=== PATIENT | male | born 1970 | race Caucasian/White ===

== ENCOUNTER 2017-01-28 01:54 | Inpatient (IN) | payer MEDICAID, OTHER ==
[~2017-01-28] VITALS: Ht 185.4 cm; Wt 90.9 kg
[2017-01-28] VITALS (16 sets, daily range): BP systolic 108–142; BP diastolic 73–98; PULSE 84–126; RESP 16–30; O2SAT 92–99
--- NOTE | 2017-01-28 01:55 | ED.REPORT ---
HPI-Chest Pain 40 and Over Date of Service Jan 28, 2017 ED Provider: Yazan Pollard MD The patient is a 46 year old male w/ a hx of IV methamphetamine and HTN who presents to the ED via EMS transferred from [facility] due to chest pain and SOB 3 hours ago. Per medics, he was stable en route. Pt describes his pain as "chest tightness." His pain originally was 5/10 and he received aspirin and nitro en route. At ED, pt reports his pain is reduced to 1/10. His last meth use was two days ago. Seen 2 days ago at [facility] for chest pain where he was diagnosed with early onset CHF. He never filled his script for Lasix and Potassium. He denies any infections, heroine use, heart problems, and high cholesterol. Grandfather and mother have heart disease. CT chest 01/26/17 Impression: 1. No acute pulmonary embolus. 2. Pleural effusions , mild edema, and cardiomegaly suggesting congestive heart failure. Please note , the questionable right basilar radiopacities described on the associated chest film from earlier today likely represent effusion and atelectasis and not airspace disease. Approved by: Callie Hess M.D. on 01/26/17 Nursing Notes Stated Complaint: CHEST PAIN Nursing Notes Reviewed: Yes Allergies: Coded Allergies: Penicillins (Verified Allergy, Unknown, 01/28/17) General Time Seen by MD: 01:50 Chief Complaint Chest pain Hx Obtained From: Patient Arrived By: Ambulance Sudden in Onset?: Yes Onset Occurred: 1 - 4 hours ago Symptom Duration: Since onset Location: : Chest left Quality: Painful Severity: Current: Pain level 1 out of 10 Severity: Maximum: Pain level 5 out of 10 Associated with: Reports: Shortness of Breath Past Medical History Past Medical History unknown Past Surgical History unknown Smoking History Unknown if Ever Smoker Social History Drug Use: Meth Other Social History: Local resident Ambulatory Status Independent Review of Systems Respiratory: Reports: Shortness of breath Cardiovascular: Reports: Chest pain Complete sys rev & neg: except as marked. Physical Exam Initial Vital Signs Vital Signs (First) Date Time Temp Pulse Resp B/P Pulse Ox O2 Delivery O2 Flow Rate FiO2 01/28/17 01:59 36.3 123 24 138/93 97 Nasal Cannula 4 Initial VS: Reviewed, Vital signs abnormal Head / Eyes: Atraumatic, Normocephalic, PERRL ENT: Mucous membranes moist, Conjunctiva normal Neck: Supple, Non-tender Extremities: Vascular intact, No swelling, No tenderness Skin: Warm, Dry Psychiatric: Mood/affect normal General/Constitutional: Awake, Alert, Cooperative Rales / Rhonchi: Positive: Rales bilateral up to 1/3 tachypneic using accessory muscles of respiration Heart Rate / Rhythm: Positive: Tachycardia Abdomen: Atraumatic, Soft, Non-tender Neck: Atraumatic, No JVD Lower Extremity / Pelvis / MS: Atraumatic, Inspection NL, No edema Interpretation & Diagnostics Lab Results Interpretation Result Diagram: 01/28/17 0203 01/28/17 0203 Test 01/28/17 02:03 01/28/17 02:04 White Blood Count 9.2th/mm3 (3.8-10.1) Red Blood Count 4.73mil/mm3 (4.40-5.80) Hemoglobin 13.4g/dL (13.8-17.2) Hematocrit 41.2% (41.0-50.0) Mean Corpuscular Volume 87.1fL (81-100) Mean Corpuscular Hemoglobin 28.3pg (27.0-35.0) Mean Corpuscular Hemoglobin Concent 32.5% (32.0-37.0) Red Cell Distribution Width 13.3% (12.3-15.4) Platelet Count 234bil/L (150-400) Neutrophils (%) (Auto) 50.7% (40-74) Lymphocytes (%) (Auto) 37.6% (14-46) Monocytes (%) (Auto) 8.3% (4-12) Eosinophils (%) (Auto) 3.0% (0-5) Basophils (%) (Auto) 0.2% (0-3) Hold Purple Top Tube Received (Received) Prothrombin Time 12.7sec (8.1-12.5) Prothromb Time International Ratio 1.18ratio Activated Partial Thromboplast Time 28.9sec (22.8-33.0) Hold Blue Top Tube Received (Received) Sodium Level 137mEq/L (134-144) Potassium Level 4.6mEq/L (3.5-5.2) Chloride Level 104mEq/L (97-108) Carbon Dioxide Level 19mmol/L (18-29) Blood Urea Nitrogen 20mg/dL (6-24) Creatinine 0.81mg/dL (0.76-1.27) Estimat Glomerular Filtration Rate 110mL/min (>59) Glucose Level 128mg/dL (60-99) Lactic Acid Level 1.4mmol/L (0.4-2.0) Calcium Level 8.3mg/dL (8.5-10.1) Magnesium Level 2.1mg/dL (1.6-2.6) Total Bilirubin 0.4mg/dL (0.0-1.2) Aspartate Amino Transf (AST/SGOT) 55U/L (0-50) Alanine Aminotransferase (ALT/SGPT) 56U/L (0-44) Alkaline Phosphatase 88U/L (25-150) Total Creatine Kinase 96U/L (21-232) Creatine Kinase MB 2.4ng/mL (0.0-10.4) Creatine Kinase MB % % (0.0-5.0) Troponin T 0.010ug/L (0.0-0.011) Total Protein 6.7g/dL (6.4-8.4) Albumin 3.1g/dL (3.4-5.0) Thyroid Stimulating Hormone (TSH) 5.790uIU/mL (0.450-4.500) Hold [place] Top Tube Received (Received) Hold [place] Top Tube Received (Received) Lab values outside NL range: no clinical significance. Lab Results Interpretation: Normal troponin. Drug screen positive for methamphetamine. X-Ray Chest Interpretation Chest Xray Interpretation: IMPRESSION: CHF, cardiomyopathy View: Portable Interpretation / Wet Read by: Wet read ED physician Re-Eval/Medical Decision Med Decision/Clinical Course 46-year-old male with a history of methamphetamine abuse and very recently diagnosed CHF of uncertain etiology. He had 2-3 hours of substernal chest pain and EKG changes suspicious for but not diagnostic of STEMI. Partial STEMI protocol protocol was used not to include heparin, beta lottie, and Plavix. He was evaluated by Dr. Juarez and it was decided that he should go to the Facilities Director. After Facilities Director his care will be arranged for between Dr. Juarez and Dr. Kaiser. Time of Eval: 02:59 Patient Status: Condition unchanged Re-Evaluation/Progress Note: Pt rechecked. Chest x-ray results show CHF. Plan for admission. Pt understands and agrees with plan. All questions addressed. Consultation #1: Referral / Consult Name: Nasim Juarez MD Consulted With: Cardiology Call Returned at: 02:01 Gate Clerk: Agrees with eval, Agrees with plan Note: Case discussed. Dr. Juarez will take pt to systems testing laboratory technician. Consultation #2: Referral / Consult Name: Charlie Kaiser MD Consulted With: Hospitalist Call Returned at: 03:23 Gate Clerk: Agrees with eval, Agrees with plan Note: Case discussed. Dr. Juarez wants Dr. Del Toro to admit. Counseled Regarding: Diagnosis, Lab results, Need for admission Discharge & Departure Primary Impression: CHF (congestive heart failure) Congestive heart failure type: unspecified congestive heart failure type Congestive heart failure chronicity: unspecified congestive heart failure chronicity Qualified Code: I50.9 - Heart failure, unspecified Additional Impression: Cardiomyopathy Disposition: ADMITTED TO HOSPITAL Discharge Condition All VS Reviewed: Yes Condition: Stable Referrals: [facility] Crit Care Except Billable Proc Time Spent: 30-74 minutes Services Performed: Patient management by me, Time spent at bedside, Reviewing test results, Reviewing imaging, Discussing patient care, Documentation in record, Time with fam/surrogate Critical Care Notes: 46-year-old male with chest pain evaluated by Dr. Juarez and taken to the Facilities Director as a non-STEMI. Scribe Attestation Portion of this note were transcribed by Janki Fang. I, Dr. Pollard, personally performed the history, physical exam, and medical decision-making: I reviewed and confirmed the accuracy for the information in the transcribed note. Signed by: rissa Claire, 01/28/17 0300 copies to: [facility] Yazan Pollard MD Jan 28, 2017 01:55 Janki Fang Jan 28, 2017 02:02
[2017-01-28] MEDS ORDERED: Furosemide 10 mg/mL 4 mL Inj IVPUSH ONE ×2 (02:10→14:45)
[2017-01-28 02:20] LABS: BASOPHILS % (AUTO) 0.2 % (0-3); MONOCYTES % (AUTO) 8.3 % (4-12); Mean Corpuscular Hemoglobin 28.3 pg (27.0-35.0); Mean Corpuscular Volume 87.1 fL (81-100); NEUTROPHILS % (AUTO) 50.7 % (40-74); Platelet Count 234 bil/L (150-400)
[2017-01-28] MEDS ORDERED: Nitroglycerin 50,000 mcg/250 mL D5W Premix IV ONE (02:33)
[2017-01-28] MEDS ORDERED: 0.9% Sodium Chloride 1,000 ML ONE (02:33)
[2017-01-28] MEDS ORDERED: 0.9% Sodium Chloride 500 ML ONE (02:34)
[2017-01-28] MEDS ORDERED: Heparin 1,000 Unit/mL 10 mL Inj ONE (02:34)
[2017-01-28 02:44] LABS: TROPONIN T 0.01 ug/L (0.0-0.011)
[2017-01-28 03:00] LABS: Magnesium 2.1 mg/dL (1.6-2.6)
[2017-01-28] MEDS ORDERED: fentaNYL-PF 50 mCg/mL 2 mL Inj ONE (03:25)
[2017-01-28] MEDS ORDERED: 0.9% Sodium Chloride 1,000 ML IV SCH (03:43)
--- NOTE | 2017-01-28 03:43 | PCM.HPMED ---
Subjective Date of Service Jan 28, 2017 Primary Provider: Admitting Physician: Nasim Juarez MD Primary Care Physician: Neymar Gomez MD Attending Physician: Nasim Juarez MD Chief Complaint: Chest pain History of Present Illness: Patient is a 46 y.o. M with a medical history of IV methamphetamine use, HTN. Patient presented to ED via EMS from [facility] due to chest pain and shortness of breath. Per EMS report patient described pain as chest tightness, 5 /10, received nitroglycerin and aspirin en route, with good relief of chest pain down to 1/10. Patient stated his last meth use was two days ago. Patient was seen at [facility] two days ago for meth intoxication, chest pain, and diagnosed with early onset CHF. He was discharge with a prescription for Lasix and potassium, which he never filled. Upon arrival to ED chest pain had mostly resolved, EKG showed ST elv in leads V2-6, patient case discussed with Dr. Juarez who agreed to take patient to custodial laborer. Patient reports that symptoms today were similar to those at [facility] but worse, noting shortness of breath, chest pain described a crushing/tightness, sweating, dizziness, nausea. Patient denies syncope, nausea, vomiting, chills, diarrhea, change in vision, cough. Review of Systems: Comprehensive review of systems conducted and was negative except for the pertinent positives listed above. Allergies Coded Allergies: Penicillins (Verified Allergy, Unknown, 01/28/17) Home Medications Lasix Potassium PMH IV methamphetamine Surgical History None reported Family History Coronary artery disease Atrial fibrillation HTN Social History Hx Alcohol Use: No Hx Substance Use: Yes (Meth) Smoking Status: Unknown if Ever Smoker Exam Vital Signs Vital Sign - Last Date Time Temp Pulse Resp B/P Pulse Ox O2 Delivery O2 Flow Rate FiO2 01/28/17 03:03 36.3 121 26 134/98 99 Nasal Cannula 4 Intake and Output 01/27/17 01/27/17 01/28/17 Cumulative From/Thru 15:00 23:00 07:00 01/28/17 01:59 - 01/28/17 03:03 Output Total 600 ml 600 ml Balance -600 ml -600 ml Output Urine Total 600 ml 600 ml Exam General: Alert, Oriented X3, Cooperative, No Acute Distress Head: Normocephalic, atraumatic. External ears normal. Eyes: PERRLA, EOMI. Anicteric sclerae. Mouth: Mouth Normal, Mucous Membranes dry/[place] Neck: Neck supple with full range of motion. + JVD at 45 degrees Chest & Lungs: Bilateral diffuse ronchi in all lung bueno, mild crackles at bases, wheezes, or rhonchi. Cardiovascular: Regular Rate/Rhythm, Normal S1, Normal S2, soft grade I/IV systolic murmur at LSB/Rubs/Gallops Abdomen: Non-tender, Non-distended, No masses, Normoactive bowel tones, Soft Musculoskeletal: Normal Range of Motion Extremities: No cyanosis/clubbing/, non pitting edema lower extremities bilaterally, catheter insertion site bandaged with good hemostatsis. Neurological: Grossly Neurologically Intact, Cranial Nerves 2-12 Intact, Normal Speech, Strength Normal 4/4 ext, Sensation Intact, Cerebellar Function nl Finger-Nose, Lab and Diagnostics Result Diagram: 01/28/17 0203 01/28/17 0203 X-Rays, CTs and MRIs CT chest 01/26/17 Impression: 1. No acute pulmonary embolus. 2. Pleural effusions, mild edema, and cardiomegaly suggesting congestive heart failure. Please note, the questionable right basilar radiopacities described on the associated chest film from earlier today likely represent effusion and atelectasis and not airspace disease. Approved by: Callie Hess M.D. on 01/26/17 Chest Xray IMPRESSION: CHF, cardiomyopathy View: Portable Interpretation / Wet Read by: Wet read ED physician Assessment & Plan Patient is a 46 y.o. M with a medical history of IV methamphetamine use, HTN. Patient presented to ED via EMS from [facility] due to chest pain and shortness of breath. Admitted to hospital for treatment of STEMI s/p cardiac categorization 01/28/17, new onset CHF. 1. CHF, unspecified diastolic/systolic, acute, uncontrolled - Patient recently discharge from [facility] with diagnosis of new onset CHF, unspecified etiology - CT chest 01/26/17 cardiomegaly suggesting congestive heart failure, no sign of PE - CXR consistent with CHF - s/p cardiac categorization 01/28/17 Dr. Juarez, showed presence of mitral regurgitation and pulmonary edema, no signs of STEMI - EKG post cardiac cath showed no signs of ischemia - Metoprolol 25 mg PO QD - Lisinopril 5 mg QD - ASA 81 mg PO QD - Atorvastatin 40 mg PO QD - Morphine 1-4 mg IV PRN for chest pain - Repeat BMP, CBC in AM - TSH ordered with free T4 - Cardiology consult placed 2. Pulmonary edema, acute - s/p cardiac cath, showed sings of pulmonary edema consistent with uncontrolled CHF - Lasix IV 40 mg BID - Hold IVF - Restrict fluid 2 L per day 3. IV methamphetamine use - Last use two days ago - Mitral regurgitation noted on cardiac catherterization - ECHO as above - Hepatitis panel ordered - HIV screen ordered 4. Suspicion of SBE, acute - Mitral regurgitation of unknown chronicity in the setting of IVDU, R/o SBE - Rashid criteria: New vs chronic mitral regurgitation, IVDU, - blood cultures ordered - Lactic acid ordered - ESR ordered - RA ordered - ECHO as above Chronic conditions Back pain - Percocet 5-325 mg PO 1 tab Q4 hrs Patient is admitted under inpatient status with expected length of stay greater than 2 midnights due to severity of presenting symptoms, risk of adverse event, and complexity of treatment plan. . Pain Evaluation: Adequate Pain Control GI Prophylaxis: Proton Pump Inhibitor VTE Prophylaxis: Sub-Q Heparin (Unfractionated) Resuscitation Status: CPR: Attempt Resuscitation Attending Statement The patient was seen and examined together with Dr. Zamora on 01/28 and I agree with the history, exam and plan as outlined in the note above. RAFFAELE ZAMORA DO Jan 28, 2017 03:43 Charlie Kaiser MD Jan 28, 2017 07:06
[2017-01-28] MEDS ORDERED: Ondansetron 2 mg/mL 2 mL Inj IVPUSH PRN ×2 (03:45→04:35)
[2017-01-28] MEDS ORDERED: Alum-Mag Hydrox-Simeth 30 mL Suspension PO PRN (03:45)
[2017-01-28] MEDS ORDERED: Polyethylene Glycol (PEG) 17 Gm Powder PO PRN (03:45)
[2017-01-28] MEDS ORDERED: Atropine 1 mg/10 mL (Code) Syringe IVPUSH PRN (04:35)
--- NOTE | 2017-01-28 04:41 | CS94 ---
[address] [address] DIAGNOSTIC CARDIAC CATHETERIZATION PATIENT: BRANT AVALOS : 1970 MR#: [id number] ADMIT: 01/28/2017 JOB ID: [id number] SERVICE DATE: 01/28/2017 PROCEDURE NOTE CARDIAC CATHETERIZATION LABORATORY: CARDIAC BOW REHAIRER: Nasim Juarez MD PROCEDURE: Coronary angiogram, emergent. CLINICAL DETAILS: This 46-year-old man presents to the cardiac catheterization laboratory for coronary angiogram after he was transferred to this emergency department after he presented to an outside hospital with severe shortness of breath and also severe retrosternal chest pressure. ECG shows subtle nondiagnostic ST-elevation 1 mm or less in right precordial leads without reciprocal ST-depression. The ECG is interpreted as atypical for STEMI; but STEMI not entirely excluded. Note tachycardia and in the setting of probable acute methamphetamine intoxication. The clinical picture is primarily consistent with pulmonary edema with a prior similar presentation two days ago, at which time a CT PE was negative for PE. Chest x-ray shows marked cardiomegaly, pulmonary venous hypertension consistent with pulmonary edema. He was treated with ECA with aspirin 324 mg chewed; and Lasix 40 mg IV with vigorous initial urine output. Initial troponin not elevated. PROCEDURAL DETAILS: I evaluated him in the emergency department. I discussed the findings, impressions and management considerations with him, including recommendation to proceed emergently to cardiac catheterization for definitive diagnosis and to guide treatment decisions, including medical therapy, percutaneous coronary intervention or bypass surgery if needed. We discussed the procedure, including possible risks and complications. We discussed bleeding, infection, blood clots; as well as injury to nerve, artery, vein or kidney; and also arrhythmia, drug reaction; or others. We discussed treatment as needed, including surgery, pacemaker, transfusion. We discussed more serious complications that are possible, including stroke, heart attack, cardiac arrest, and emergency surgery, including transfer for coronary bypass surgery. After discussion and questions, he signed informed consent to proceed. He was brought to the catheterization laboratory, where he was prepped sterilely and draped. After Lasix he was, in fact, able lie flat for the procedure. CORONARY ANGIOGRAM: Arterial access was obtained without difficulty in the right common femoral artery using fluoroscopic localization over the femoral head and modified Seldinger technique to insert a 10 cm 6-Syrian side arm sheath. Catheters were advanced and exchanged over a long 0.035 inch J tipped guidewire. The left coronary artery was imaged with a 6-Syrian JL-4 diagnostic catheter. The right coronary artery was imaged with a 6-Syrian JR-4 catheter. LV not entered including because of a murmur of mitral regurgitation and concern for possible valvular vegetations. Procedure without difficulty. Patient tolerated procedure well. No complications. A side arm sheath angiogram showed high bifurcation of the right common femoral artery and access is in the mid femoral head but in the right superficial femoral artery. Arterial hemostasis was obtained without difficulty with a Mynx closure device. The patient is transferred chest pain free and still critical condition, but improved, from the catheterization laboratory to the CCU for ongoing care, including by the admitting hospitalist service. I discussed the procedure findings and recommendations with the patient and with his significant other.; and with the hospitalist team. FINDINGS: 1. LMCA: The left main coronary artery is short and intact. 2. LAD: Normal. The LAD is a large transapical vessel with two diagonals. 3. LCX: Normal. Codominant. The left circumflex artery is a large vessel with a large posterolateral branch. 4. RCA: Codominant. Normal. The right coronary artery is a moderate-sized vessel with a moderate sized PDA but no posterolateral branch. CONCLUSION: Coronary arteries normal. RECOMMENDATIONS: 1. Admit to hospitalist for further diagnosis and management; including for acute management of clinical pulmonary edema; and a murmur of mitral regurgitation in an IV methamphetamine user. 2. Comment: The coronary angiogram is consistent with the clinical impression of primarily pulmonary edema; and excludes STEMI.
[2017-01-28 04:46] LABS: INR 1.18 ratio
[2017-01-28] MEDS ORDERED: oxyCODONE-Acetamin 5-325 mg Tablet PO PRN (04:55)
[2017-01-28 05:26] LABS: Creatine Kinase 96 U/L (21-232)
[2017-01-28 06:07] LABS: APPEARANCE,URINE CLEAR (CLEAR,HAZY); COLOR,URINE DARK YELLOW (YELLOW); OCCULT BLOOD,URINE NEGATIVE (NEGATIVE); PH,URINE 5.5 (5.0-8.0); UROBILINOGEN,URINE NORMAL (NORMAL)
[2017-01-28] MEDS ORDERED: Diltiazem 5 mg/mL 5 mL Inj ONE (06:56)
--- NOTE | 2017-01-28 07:43 | NUR ---
CCU admit Pt arrived from biological lab technician to CCU aaprox at 0400 after heart cath without PCI. Right groin access C/D/I without apparent complications (refer to biological lab technician flowsheet). Pt positive for sleep apnea. VSS with elevated BP. MD aware. Received order to give Metoprolol PO. approx 10 min after admin, pt shows A-Fib RVR vs A-Flutter. Family stated that pt's mother has hx of similar sx after Lopressor given. MD at the bedside. Received order for Diltazem IVP 20 mg x 1. Pt converted to ST HR 100's. No overt complications noted. Please refer to CCU flowsheet, post cath flowsheet for further details.
[2017-01-28] MEDS ORDERED: Furosemide 10 mg/mL 4 mL Inj IVPUSH SCH (08:30)
[2017-01-28 09:02] LABS: Creatine Kinase 80 U/L (21-232); Magnesium 2.1 mg/dL (1.6-2.6)
[2017-01-28 09:09] LABS: TROPONIN T < 0.010 ug/L (0.0-0.011)
[2017-01-28] MEDS: Furosemide 10 mg/mL 4 mL Inj IVPUSH SCH ×2 (09:16→21:41)
--- NOTE | 2017-01-28 09:35 | DRSVH ---
PROCEDURE: X-RAY CHEST ONE VIEW, PORTABLE ([id number]) INDICATIONS: STEMI TECHNIQUE: One view of the chest was acquired. COMPARISON: None. FINDINGS: Surgical changes and devices: None. Lungs and pleura: No pleural effusions or pneumothorax. Diffuse bilateral interstitial opacities ar e present. Mediastinum: Mediastinal contours appear normal. Heart size is enlarged. Bones and chest wall: No suspicious bony lesions. Overlying soft tissues appear unremarkable. IMPRESSION: Cardiomegaly and mild edema. Dictated by: Omar Turk [facility] Interpreted: Yoly Street MD on 01/28/2017 at 9:34 Transcribed by: ROLDAN on 01/28/2017 at 9:34 Approved by: Yoly Street MD, PhD on 01/28/2017 at 16:49
--- NOTE | 2017-01-28 11:11 | CONS ---
[address] [address] CONSULTATION REPORT PATIENT: BRANT AVALOS : 1970 MR#: [id number] ADMIT: 01/28/2017 JOB ID: [id number] DATE OF SERVICE: 01/28/2017 CARDIOLOGY CONSULTATION NOTE -- INITIAL CRITICAL CARE EVALUATION (EMERGENCY DEPARTMENT): DATE OF EVALUATION: January, at 2:30 a.m. CONSULTING PHYSICIAN: Cardiology -- Nasim Juarez MD. PROBLEMS: 1. Chest pain and abnormal ECG: a. Chest pain -- severe chest pain; ongoing but partially resolved. b. ECG changed from old prior ECG. Now with nondiagnostic anterior ST-elevation V1 to V3 (nondiagnostic for STEMI). c. Question of STEMI is raised. 2. Pulmonary edema: Severe dyspnea; severe hypopnea; and pulmonary edema on CXR. CAD RISK FACTORS: No history of diabetes. No history of treated hypertension. No history of treated hyperlipidemia. Current smoker -- less than one pack a day. No clear family history of premature coronary disease. OTHER PROBLEMS: Methamphetamine abuse: 1. Recent IV use; and smoking -- last reported two days ago. 2. History of skin abscesses. CHIEF COMPLAINT: Chest pain. Abnormal ECG -- initially called for question of "STEMI activation." HISTORY OF PRESENT ILLNESS: PRESENTATION: I was initially called by the emergency department physician about this 47-year-old man who was transferred from [facility] after he presented there with severe dyspnea and orthopnea. ECG showed possible ST-elevation, and question of emergent "STEMI activation" is raised. The patient presented two days previously with chief complaint being dyspnea. At that time at the outside hospital he had CT-PE, which did not show PE; and the report indicates consistent with heart failure. Today, he presents again with primarily severe dyspnea and orthopnea with some edema. However, today, he also had initially severe pressure-like retrosternal chest discomfort radiating to his neck and jaw. It is now partly relieved with ongoing residual, 1-4 intensity chest pain on a scale of 10. He reports he last used methamphetamine four days ago. Then, on further discussion, he reports using methamphetamine two days ago. He smokes and chews it, and uses it IV. It is not clear if he is also using other drugs. Regarding his dyspnea, he appears to have severe symptoms of heart failure and pulmonary edema. He cannot lay flat. He reports, in association with his drug use, that he has had fevers and chills but he is not specific on these points. CARDIAC HISTORY: He reports he has no prior cardiac history and even though he has a doctor, he has not been seen much for medical care. 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 He does not have history of arrhythmia or current symptoms of arrhythmia, including tachy, palpitation, presyncope, or syncope. Regarding other possible underlying vascular disease he does not report a known history of CVA; and he reports no current symptoms of TIA. No claudication. Regarding possible dual antiplatelet therapy, he reports no bleeding symptoms and no anticipated upcoming surgery. ALLERGIES: He reports no known drug allergies. The medical record indicates allergy to: 1. PENICILLIN. 2. METOPROLOL. I do not elicit any history of allergy to medical contrast, seafood, shellfish, or iodine. He reports no problem with a recent CT scan. MEDICATIONS: He reports he takes no usual medicines regularly. PAST SOCIAL HISTORY: He is not treated for other medical diagnoses. REVIEW OF SYSTEMS: I questioned him and his significant other about a 13-point review of systems, which was unremarkable, noncontributory and negative, except as noted including: No history of thyroid disorder. No history of lung disorder, asthma, wheezing, or known COPD. No history of GI disorder including hepatitis, ulcer, indigestion, or jaundice. PERSONAL AND SOCIAL HISTORY: Cigarettes -- he smokes less than one pack a day currently; and he has smoked one pack a day over the years; and he reports "smoking since age 16" (30 years). EtOH -- he reports he uses some alcohol. Work -- not working. FAMILY HISTORY: He reports he does not know any family history of premature coronary disease. EXAMINATION: General appearance: Well-developed (robust) middle-aged man in acute distress with dyspnea, sitting upright and with some diaphoresis. He appears overall moderately to severely ill. VITAL SIGNS: Blood pressure 134/98 with heart rate 121 and regular in sinus rhythm on telemetry. SpO2 of 95% on 3 L nasal cannula. Respiratory rate 25 with moderate tachypnea and moderate dyspnea. Afebrile, 36.3. NEUROLOGIC AND MENTAL STATUS: No overt focal neurologic defect noted. I performed a brief neurologic exam of cranial nerves and muscle strength. He is alert, oriented, appropriate and conversant despite his dyspnea. HEENT: PERRL. Conjunctivae pink. Sclerae not icteric. Mouth and mucous membranes intact. NECK: Carotid upstroke intact bilaterally without bruit. The jugular venous pressure is markedly elevated, and the external jugulars are tensely distended. No palpable thyromegaly. No palpable cervical lymphadenopathy. LUNGS: Note some left lower lobe rales. CARDIAC: No chest wall tenderness. Cardiac examination notable for tachycardia; hint of S3 gallop; and a blowing systolic murmur at the apex radiating well to the axilla that is consistent with mitral regurgitation. No diastolic rumble or murmur of AR heard. ABDOMEN: Somewhat obese, but otherwise unremarkable examination without tenderness, mass, hepatosplenomegaly or bruit of abdominal aortic aneurysm. EXTREMITIES: Mild to moderate bilateral pretibial pitting edema. Pedal pulses difficult to feel bilaterally. SKIN: He has some skin lesions including an indurated plaque on the left thigh that significant other indicates "staph abscess healing." Otherwise, no overt skin lesions of infectious endocarditis evident on an emergent examination. DIAGNOSTIC STUDIES: ELECTROCARDIOGRAM: I reviewed the ECG taken at the outside hospital and again on admission here; both of which show sinus tachycardia at 120 bpm with left atrial enlargement and Q-waves V1 to V3 that could be consistent with a prior or current anterior wall [place]. There is subtle, [address]-elevation in leads V1 through V3 without confirmatory reciprocal ST-depression. Overall impression of the ECG is nondiagnostic for STEMI; but STEMI not excluded. Note, a prior ECG from several years ago is different and shows concave upward ST segments in V1 through V3. CXR : The chest x-ray shows pulmonary edema with cardiomegaly and marked pulmonary venous hypertension. LABORATORY: CBC includes white count not elevated at 9200, with hemoglobin 13.4, hematocrit 41.2, normal indices and platelet count 234,000. Urinalysis unremarkable. INR 1.18. Chemistries include potassium 4.6, CO2 of 19, BUN 20, creatinine 0.81, glucose elevated at 128. Magnesium 2.1. Liver function tests overall unremarkable but AST elevated at 55; and ALT mildly elevated at 56. Initial cardiac markers several hours into his chest pain include troponin not elevated 0.010 and CK 80 with CK-MB 2.7. Note TSH slightly elevated at 5.790, with free T4 normal at 1.23. ASSESSMENT: I discussed my findings, impressions and management considerations with the patient and his significant other; as well as with the emergency department staff includin. ACS (acute coronary syndrome) -- possible: The initial question for Cardiology relates to the possibility of ST-elevation myocardial infarction because of his severe chest pain -- now with mild residual chest pain; and possible ST elevation on ECG. The ECG is nondiagnostic but in this clinical setting ST-elevation myocardial infarction is not excluded. The question is clinically significant including because of his hemodynamic instability with overt pulmonary edema. I discussed with him the recommendation to proceed now with emergent diagnostic coronary angiogram for definitive diagnosis and to guide treatment decisions including medical therapy, percutaneous coronary intervention, or coronary artery bypass surgery, if needed. I discussed with him the high risk nature of the procedure in the setting of acute illness with pulmonary edema and orthopnea. We discussed the procedure including possible risks and complications. He signed informed consent to proceed. The preprocedure estimation is that coronary disease is not highly likely in this setting but needs to be excluded. 2. Pulmonary edema and murmur of mitral regurgitation. His chief complaint is severe shortness of breath with symptoms of heart failure including orthopnea and confirmed by chest x-ray. He has a murmur consistent with mitral regurgitation; and in the setting of intravenous drug use raises a strong question of endocarditis with mitral regurgitation that needs to be evaluated. In the emergency department he was given Lasix 40 mg IV and responded with profuse diuresis initially. We also started nitroglycerin intravenous for his pulmonary edema, as well as chest pain. RECOMMENDATIONS: 1. Cardiac catheterization -- emergent. 2. Admit to the hospitalist to ICU. 3. Echocardiogram. 4. Treat for pulmonary edema including acute diuresis; and nitroglycerin IV. 5. Please reconsult for ongoing cardiology followup.
--- NOTE | 2017-01-28 12:41 | DRSVH ---
[facility] [address] [place] [address] Echocardiogram Report Name: BRANT AVALOS RStudy Date: 01/28/2017 Hipolito t: 74 in Hospital Exam Location: [facility] Weigh t: 210 lb Gender: Male BSA: 2.2 m2 : 1970 Age: 46 yrs BP: 1 28/84 mmHg Reason For Study: SOB, CP, NEW CHF Ordering Physician: HOSPITALIST [facility] Performed By: Lisa Spears Referring Physician: DR. Faiza ALDANA, DR. RUBIN Interpretation Summary The left ventricle is moderate-severely dilated. The ejection fraction is estimated to be 15-20%. There is no obvious LV thrombus. Focal calcified, nonmobile. small structure seen at the junction of middle and distal septum (involves all the layers of septum). Except basal posterolateral wall, and the apex, rest of the LV segments are severely hypokinetic to akinetic. Assessment of diastolic parameters indicates a restrictive filling pattern of the left ventricle consistent with significantly elevated filling pressures. The right ventricle is moderately dilated. Right ventricular systolic function is moderately reduced. There is severe mitral regurgitation. The mitral regurgitant jet is eccentrically directed. There is moderate tricuspid regurgitation. The right ventricular systolic pressure is estimated at 41 mmHg assuming a right atrial pressure of 15 mm Hg. The ascending aorta is mildly enlarged. There is a trivial to small pericardial effusion noted. There are no echocardiographic indications of cardiac tamponade. There is a small right-sided pleural effusion. Procedure: A two-dimensional transthoracic echocardiogram with color flow and Doppler was performed. The study quality was technically good. There is no prior echocardiogram noted for this patient. The patient was in sinus tachycardia with heart rates between 94-105 bpm during the exam. Left Ventricle: The left ventricle is moderate-severely dilated. Left ventricular wall thickness is mildly increased. Focal calcified, nonmobile. small structure seen at the junction of middle and distal septum (involves all the layers of septum). There is no thrombus. There is no ventricular septal defect visualized. Left ventricular systolic function is severely reduced. The ejection fraction is estimated to be 15-20%. Except basal posterolateral wall, and the apex, rest of the LV segments are severely hypokinetic to akinetic. The E/E' ratio is abnormal. Assessment of diastolic parameters indicates a restrictive filling pattern of the left ventricle consistent with significantly elevated filling pressures. Right Ventricle: The right ventricle is moderately dilated. A calcified moderator band is seen in the right ventricle. Right ventricular systolic function is moderately reduced. Atria: Both atria are severely dilated. There is no Doppler evidence for an atrial septal defect. Mitral Valve: The mitral valve leaflets are slightly calcified. There is severe mitral regurgitation. The mitral regurgitant jet is eccentrically directed. Aortic Valve: The aortic valve is trileaflet. There is mild aortic valve sclerosis. The aortic valve opens well. No aortic regurgitation is present. Tricuspid Valve: The tricuspid leaflets are mildly thickened but open well. There is moderate tricuspid regurgitation. The right ventricular systolic pressure is estimated at 41 mmHg assuming a right atrial pressure of 15 mm Hg. Pulmonic Valve: The pulmonic valve leaflets are thin and pliable; valve motion is normal. There is trace pulmonic regurgitation. Great Vessels: The aortic root is normal size. The ascending aorta is mildly enlarged. Mild pulmonary artery dilation. The IVC is dilated (diameter is greater than 2.1 cm) and it collapses less than 50% with a sniff. This suggests a high right atrial pressure of 15 mm Hg. Pericardium/ Pleura There is a trivial to small pericardial effusion noted. There are no echocardiographic indications of cardiac tamponade. There is a small right-sided pleural effusion. MMode/2D Measurements & Calculations LVIDd: 6.7 cm RA long axis: 6.4 cm LVOT diam: 2.1 cm LVIDs: 6.1 cm LA A2 area: 39.4 cm AoV Opening FS: 10.0 % LA A4 area: 34.1 cm RA area: 29.4 cm EPSS: 1.9 cm LA length (vol) RA vol: 115.6 ml Ao root diam IVSd: 1.1 cm RA : 52.6 ml/m LVPWd: 1.2 cm LA vol: 175.2 ml RVDd major: 8.0 cm asc Aorta Diam LA vol index Ao Arch Diam (Prox Trans): 3.3 cm IVC diam: 3.5 cm EDV(MOD-sp2) LV minaya. diameter/BSA LV sys. diameter/BSA RVD1 (basal) : 308.6 ml (cm/m^2): 3.1 (cm/m^2): 2.8 : 5.4 cm RVD2 (mid) : 4.0 cm Doppler Measurements & Calculations Ao V2 max MV E max wellington MV E/A: 2.5 TR max [place] : 81.8 cm/sec : 103.1 cm/sec Med Peak E' [place] : 261.9 cm/sec Ao max P.7 mmHg MV A max wellington TR max PG Ao mean P.0 mmHg : 40.5 cm/sec E/E' med: 14.7 : 27.4 mmHg LVOT Max [place] Lat Peak E' [place] PA V2 max : 78.2 cm/sec MR ERO: 0.43 cm2 : 78.9 cm/sec E/E' lat: 12.7 PA mean PG HARLEEN(I,D): 3.7 cm E/e' average: 13.7 sev ratio: 1.1 PA Accel Time : 0.07 sec Ao V2 mean LV V1 max PG MR flow rate PA V2 mean : 69.2 cm/sec : 46.3 cm/sec Ao V2 VTI: 12.7 cm LV V1 VTI: 13.8 cm: 223.9 cm3/sec MR PISA radius HARLEEN(V,D): 3.2 cm2 HARLEEN indexed to BSA (cm^2/m^2): 1.7 Reading Physician:RONAN
[2017-01-28] MEDS ORDERED: Nitroglycerin 2% 1 Gm Ointment TOPICAL ONE (14:45)
[2017-01-28 15:11] LABS: Creatine Kinase 76 U/L (21-232)
[2017-01-28 15:20] LABS: TROPONIN T < 0.010 ug/L (0.0-0.011)
--- NOTE | 2017-01-28 15:30 | NUR ---
P: Chest Pain I: No c/o chest pain. Pt gets anxious and becomes tachypneic. Dr. Ty notified and Lasix 40mg IV x1 dose given. Nitropaste 1 inch placed. Nicotine patch given. Room air sats stable. Pt has MACIEL at night and was on 5L/NC to keep his sats up. Up to chair with stand by assist. Family at bedside. CHF booklet given to pt. Taking diet and fluids well. Voiding qs per urinal. Dr. Juarez here to see pt. Pt had episode of a-fib 169 RVR and diltiazem 20 mg IVP given and pt converted to ST 105. BP stable. Saline lock patent and flushes well. Pt able to move himself in bed. Right groin site without hematoma or bleeding noted. E: Stable S: Alert and Oriented. Uses call light appropriately. Frequent rounding.
--- NOTE | 2017-01-28 16:37 | NUR ---
Social Work: Screen D: Per EMR review, pt is a 46 year old male admitted for STEMI. Pt is Self Pay Insurance- [facility] is following and assisting pt in applying for DSHS/Medicaid. PCP is Neymar Gomez MD> NOK is Myriam Howard, Mother, . Advanced directives information provided by [employer]ENT- Readmit score is high, 6/8. [employer] met with pt and friend at bedside. Sw role and contact info provided. Pt lives in [place] and couch-surfs between high friends and ex-'s homes. Pt is I at baseline and continues to drive. Pt admits to IV meth use and states his most recent use was 4-5 days ago. [employer] discussed CDP bedside assessment as a resource and possible gateway to treatment. Pt declined and states that he has participated in treatment and does not feel he needs this at this time. Pt declined further CD assessment with [employer]ENT however was receptive to community resources for CD/MH and 24/7 crisis line. Pt denies any discharge needs. A: Pt who is I at baseline. P: Anticipate pt to discharge home via POV once medically stable; pt provided with resources. [employer] to continue to follow. Elsi Dawson MSW
--- NOTE | 2017-01-28 18:20 | NUR ---
Transfer to [facility] 2005 Pt transferred from CCU to [facility] at 15:30. Vitals stable, pt resting comfortably. CMS in BLE present, bilateral pedal pulses palpable, groin site slightly tender to palpation, no drainage or signs of hematoma. Pt voiding frequently in urinal in bed.
[2017-01-29] VITALS (7 sets, daily range): BP systolic 101–162; BP diastolic 52–86; PULSE 76–129; RESP 16–24; O2SAT 93–99
[2017-01-29 03:08] LABS: Hepatitis A Antibody IgM Negative (Negative); Hepatitis B Core Antibody IgM Negative (Negative)
--- NOTE | 2017-01-29 04:05 | NUR ---
Telemetry Update: Paroxysmal Afib Patient has been Sinus Rhythm 100-120s with PACs. Patient converted to Aflutter 130-160S at 23:12, and converted back to Sinus Rhythm at 23:36. ANASTACIA Brewster aware.
[2017-01-29 04:10] LABS: BASOPHILS % (AUTO) 0.2 % (0-3); EOSINOPHILS % (AUTO) 3.7 % (0-5); MONOCYTES % (AUTO) 8.1 % (4-12); Mean Corpuscular Hemoglobin 28.2 pg (27.0-35.0); Mean Corpuscular Volume 86.3 fL (81-100); NEUTROPHILS % (AUTO) 61.5 % (40-74); Platelet Count 248 bil/L (150-400)
--- NOTE | 2017-01-29 06:42 | NUR ---
Tele/Groin/SL Telemetry had periods of X-[id number]-[id number], converted to S- Tach on room air Saline locked , C/O leg cramps applied Heat blankets and PO tylenol . Groin puncture site CDI, no drainage,pain or swelling.
[2017-01-29] MEDS: Furosemide 10 mg/mL 4 mL Inj IVPUSH SCH ×2 (08:12→21:45)
--- NOTE | 2017-01-29 11:58 | NUR ---
Groin/Bowel Mvmt Pt right groin CDI. No signs of bleeding. No pain on palpation. Pt stated he has not had bowel movement in 2 days, offered prune juice. Pt accepted. Encouraged ambulation in room. Care continues.
--- NOTE | 2017-01-29 16:28 | PCM.PNMED ---
Subjective Date of Service Jan 29, 2017 Subjective Patient feels a little bit less edematous and less short of breath. He denies any chest pain. Exam Vital Signs Vital Sign - Last Date Time Temp Pulse Resp B/P Pulse Ox O2 Delivery O2 Flow Rate FiO2 01/29/17 12:22 36.6 109 18 143/81 94 Room Air 01/28/17 04:08 3.00 Intake and Output 01/28/17 01/28/17 01/29/17 Cumulative From/Thru 14:59 22:59 06:59 01/28/17 01:59 - 01/29/17 06:21 Intake Total 740 ml 600 ml 1340 ml Output Total 3100 ml 2225 ml 5925 ml Balance -2360 ml -1625 ml -4585 ml Intake Oral 740 ml 600 ml 1340 ml Output Urine Total 3100 ml 2225 ml 5925 ml # Voids 6 6 # Bowel Movements 0 0 0 Exam Constitutional: Middle-aged male who at this point appears slightly short of breath but is alert and appropriate. IVs and Medications Medications Reviewed: Medications were reviewed in detail Lab and Diagnostics Laboratory Tests 72 Hours Test 01/28/17 02:03 01/28/17 02:04 01/28/17 02:20 01/28/17 08:20 White Blood Count 9.2th/mm3 (3.8-10.1) Red Blood Count 4.73mil/mm3 (4.40-5.80) Hemoglobin 13.4g/dL (13.8-17.2) Hematocrit 41.2% (41.0-50.0) Mean Corpuscular Volume 87.1fL (81-100) Mean Corpuscular Hemoglobin 28.3pg (27.0-35.0) Mean Corpuscular Hemoglobin Concent 32.5% (32.0-37.0) Red Cell Distribution Width 13.3% (12.3-15.4) Platelet Count 234bil/L (150-400) Neutrophils (%) (Auto) 50.7% (40-74) Lymphocytes (%) (Auto) 37.6% (14-46) Monocytes (%) (Auto) 8.3% (4-12) Eosinophils (%) (Auto) 3.0% (0-5) Basophils (%) (Auto) 0.2% (0-3) Erythrocyte Sedimentation Rate 7mm/hr (0-15) Hold Purple Top Tube Received (Received) Prothrombin Time 12.7sec (8.1-12.5) Prothromb Time International Ratio 1.18ratio Activated Partial Thromboplast Time 28.9sec (22.8-33.0) Hold Blue Top Tube Received (Received) Sodium Level 137mEq/L (134-144) Potassium Level 4.6mEq/L (3.5-5.2) Chloride Level 104mEq/L (97-108) Carbon Dioxide Level 19mmol/L (18-29) Blood Urea Nitrogen 20mg/dL (6-24) Creatinine 0.81mg/dL (0.76-1.27) Estimat Glomerular Filtration Rate 110mL/min (>59) Glucose Level 128mg/dL (60-99) Hemoglobin A1c 6.2% (4.8-5.6) Lactic Acid Level 1.4mmol/L (0.4-2.0) Calcium Level 8.3mg/dL (8.5-10.1) Magnesium Level 2.1mg/dL (1.6-2.6) 2.1mg/dL (1.6-2.6) Total Bilirubin 0.4mg/dL (0.0-1.2) Aspartate Amino Transf (AST/SGOT) 55U/L (0-50) Alanine Aminotransferase (ALT/SGPT) 56U/L (0-44) Alkaline Phosphatase 88U/L (25-150) Total Creatine Kinase 96U/L (21-232) 80U/L (21-232) Creatine Kinase MB 2.4ng/mL (0.0-10.4) 2.7ng/mL (0.0-10.4) Creatine Kinase MB % % (0.0-5.0) % (0.0-5.0) Troponin T 0.010ug/L (0.0-0.011) < 0.010ug/L (0.0-0.011) Total Protein 6.7g/dL (6.4-8.4) Albumin 3.1g/dL (3.4-5.0) Thyroid Stimulating Hormone (TSH) 5.790uIU/mL (0.450-4.500) Hold [place] Top Tube Received (Received) Hold [place] Top Tube Received (Received) Free Thyroxine 1.23ng/dL (0.82-1.77) Urine Color Dark yellow (YELLOW) Urine Appearance Clear (CLEAR,HAZY) Urine pH 5.5 (5.0-8.0) Urine Specific [place] 1.025 (1.003-1.035) Urine Protein 30mg/dL (NEG,TRACE) Urine Glucose (UA) Negativemg/dL (NEGATIVE) Urine Ketones Negativemg/dL (NEGATIVE) Urine Occult Blood Negative (NEGATIVE) Urine Nitrite Negative (NEGATIVE) Urine Bilirubin Negative (NEGATIVE) Urine Urobilinogen Normalmg/dL (NORMAL) Urine Leukocyte Esterase Negative (NEGATIVE) Urine RBC 0-2/hpf (0-2) Urine WBC 0-5/hpf (0-5) Urine Epithelial Cells Few/hpf (NONE-MOD) Urine Crystals None seen (NONE SEEN) Urine Bacteria None/hpf (NONE-FEW) Urine Hyaline Casts None/lpf (NONE) Urine Granular Casts None seen (NONE SEEN) Urine Waxy Casts None seen (NONE SEEN) Urine Red Blood Cell Casts None seen (NONE SEEN) Urine White Blood Cell Casts None seen (NONE SEEN) Urine Mucus Present (None Seen) Urine Trichomonas None seen (NONE SEEN) Urine Yeast None (NONE SEEN) Urine Culture Reflexed Not indicated Hold Urine Received (Received) Urine Opiates Screen Negative Urine Methadone Screen Negative Urine Barbiturates Screen Negative Urine Amphetamines Screen Positive Urine Benzodiazepines Screen Negative Urine Cocaine Metabolite Screen Negative Urine Cannabinoids Screen Negative Rheumatoid Factor 18.0IU/mL (0.0-13.9) Hepatitis A IgM Antibody Negative (Negative) Hepatitis B Surface Antigen Negative (Negative) Hepatitis B Core IgM Antibody Negative (Negative) Hepatitis C Antibody >11.0s/co ratio Hepatitis C Antibody Comment Comment (.) Hepatitis C Comment . HIV (1&2) Ag and Ab, 4th Generation Non reactive (Non Reactive) Test 01/28/17 14:15 01/29/17 03:58 01/29/17 08:20 Total Creatine Kinase 76U/L (21-232) Creatine Kinase MB 2.9ng/mL (0.0-10.4) Creatine Kinase MB % % (0.0-5.0) Troponin T < 0.010ug/L (0.0-0.011) White Blood Count 10.0th/mm3 (3.8-10.1) Red Blood Count 4.82mil/mm3 (4.40-5.80) Hemoglobin 13.6g/dL (13.8-17.2) Hematocrit 41.6% (41.0-50.0) Mean Corpuscular Volume 86.3fL (81-100) Mean Corpuscular Hemoglobin 28.2pg (27.0-35.0) Mean Corpuscular Hemoglobin Concent 32.7% (32.0-37.0) Red Cell Distribution Width 13.2% (12.3-15.4) Platelet Count 248bil/L (150-400) Neutrophils (%) (Auto) 61.5% (40-74) Lymphocytes (%) (Auto) 26.3% (14-46) Monocytes (%) (Auto) 8.1% (4-12) Eosinophils (%) (Auto) 3.7% (0-5) Basophils (%) (Auto) 0.2% (0-3) Sodium Level 137mEq/L (134-144) Potassium Level 3.5mEq/L (3.5-5.2) Chloride Level 100mEq/L (97-108) Carbon Dioxide Level 23mmol/L (18-29) Blood Urea Nitrogen 20mg/dL (6-24) Creatinine 0.84mg/dL (0.76-1.27) Estimat Glomerular Filtration Rate 105mL/min (>59) Glucose Level 119mg/dL (60-99) Calcium Level 8.6mg/dL (8.5-10.1) Triglycerides Level 42mg/dL (0-149) Cholesterol Level 89mg/dL (100-199) LDL Cholesterol, Calculated 46.600mg/dL (0-99) VLDL Cholesterol 8.400mg/dL HDL Cholesterol 34mg/dL (>39) Cholesterol/HDL Ratio 2.62 (0.0-4.4) Result Diagram: 01/29/1735701/29/17357 X-Rays, CTs and MRIs CT chest 01/26/17 Impression: 1. No acute pulmonary embolus. 2. Pleural effusions, mild edema, and cardiomegaly suggesting congestive heart failure. Please note, the questionable right basilar radiopacities described on the associated chest film from earlier today likely represent effusion and atelectasis and not airspace disease. Approved by: Callie Hess M.D. on 01/26/17 Chest Xray IMPRESSION: CHF, cardiomyopathy View: Portable Interpretation / Wet Read by: Wet read ED physician Additional Diagnostics FINDINGS: 1. LMCA: The left main coronary artery is short and intact. 2. LAD: Normal. The LAD is a large transapical vessel with two diagonals. 3. LCX: Normal. Codominant. The left circumflex artery is a large vessel with a large posterolateral branch. 4. RCA: Codominant. Normal. The right coronary artery is a moderate-sized vessel with a moderate sized PDA but no posterolateral branch. CONCLUSION: Coronary arteries normal. RECOMMENDATIONS: 1. Admit to hospitalist for further diagnosis and management; including for acute management of clinical pulmonary edema; and a murmur of mitral regurgitation in an IV methamphetamine user. 2. Comment: The coronary angiogram is consistent with the clinical impression of primarily pulmonary edema; and excludes STEMI. Nasim Juarez MD 01/28/17 0345 Assessment & Plan Patient is a 46 y.o. M with a medical history of IV methamphetamine use, HTN. Patient presented to ED via EMS from [facility] due to chest pain and shortness of breath. Admitted to hospital for treatment of STEMI s/p cardiac categorization 01/28/17, new onset CHF. 1. CHF, unspecified diastolic/systolic, acute, uncontrolled - [place] [facility] [place] of [place] CHF, unspecified etiology - CT chest 01/26/17 cardiomegaly suggesting congestive heart failure, no sign of PE - CXR consistent with CHF - s/p cardiac categorization 01/28/17 Dr. Juarez, showed presence of mitral regurgitation and pulmonary edema, no signs of STEMI - EKG post cardiac cath showed no signs of ischemia -Discussed with cardiology and recommended starting low-dose carvedilol once significant diuresis occurs -Patient currently improving with IV Lasix diuresis 2. Pulmonary edema, acute - s/p cardiac cath, showed sings of pulmonary edema consistent with uncontrolled CHF - Lasix IV 40 mg BID - Hold IVF 3. IV methamphetamine use - Last use two days ago - Mitral regurgitation noted on cardiac catherterization - ECHO as above - Hepatitis panel ordered which did show hepatitis C positive so we will proceed with viral load checked - HIV screen ordered which returned as negative 4. Suspicion of SBE, acute - Mitral regurgitation of unknown chronicity in the setting of IVDU, R/o SBE - Rashid criteria: New vs chronic mitral regurgitation, IVDU, - blood cultures ordered - ESR ordered and is normal - ECHO as above -This with Dr. Juarez ancillary services manager therapy and did not think that DAVID was indicated at this point A he has been afebrile blood cultures have been negative and sedimentation rate was normal. Chronic conditions Back pain - Percocet 5-325 mg PO 1 tab Q4 hrs Patient is admitted under inpatient status with expected length of stay greater than 2 midnights due to severity of presenting symptoms, risk of adverse event, and complexity of treatment plan. . GI Prophylaxis: Proton Pump Inhibitor VTE Prophylaxis: Sub-Q Heparin (Unfractionated) Resuscitation Status: CPR: Attempt Resuscitation Time spent 30 minutes Shannan Ty MD Jan 29, 2017 16:28
[2017-01-30] VITALS (8 sets, daily range): BP systolic 110–138; BP diastolic 77–93; PULSE 102–121; RESP 16–24; O2SAT 96–99
[2017-01-30 03:16] LABS: BASOPHILS % (AUTO) 0.2 % (0-3); EOSINOPHILS % (AUTO) 4.8 % (0-5); MONOCYTES % (AUTO) 9.5 % (4-12); Mean Corpuscular Hemoglobin 28.2 pg (27.0-35.0); Mean Corpuscular Volume 85.9 fL (81-100); NEUTROPHILS % (AUTO) 51.9 % (40-74); Platelet Count 303 bil/L (150-400)
[2017-01-30 03:35] LABS: Magnesium 2.1 mg/dL (1.6-2.6)
--- NOTE | 2017-01-30 05:52 | NUR ---
GI/Cardiac Pt has had BMx2 since pt received prune juice yesterday on . Pt input for the shift was 1030cc as best as can be accounted for since pt's family brought in puddings and jello. Pt output for the shift was 4650cc after receiving 40mg Lasix IVP. Pt has had no c/o chest pain throughout the shift. Groin site is clean, dry, and intact and the bio-occlusive dressing is beginning to come off on one corner at this time. Pt remained ST 110s-120s with spikes into the 130s-150s with activity such as getting up to go the bathroom.
[2017-01-30] MEDS: Furosemide 10 mg/mL 4 mL Inj IVPUSH SCH (08:06)
--- NOTE | 2017-01-30 13:06 | PCM.PNMED ---
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 He reports improved respiratory symptoms. He continues to experience labored breathing. Experiences dyspnea on exertion ambulating to bathroom. Has not walked in the hallway. Exam Vital Signs Vital Sign - Last Date Time Temp Pulse Resp B/P Pulse Ox O2 Delivery O2 Flow Rate FiO2 01/30/17 10:35 115 01/30/17 07:17 36.8 18 129/93 98 Room Air 01/28/17 04:08 3.00 Intake and Output 01/29/17 01/29/17 01/30/17 Cumulative From/Thru 15:00 23:00 07:00 01/28/17 01:59 - 01/30/17 06:36 Intake Total 1040 ml 1050 ml 3430 ml Output Total 2350 ml 4650 ml 82617 ml Balance -1310 ml -3600 ml -9495 ml Intake Oral 1040 ml 1030 ml 3410 ml IV Total 20 ml 20 ml Output Urine Total 2350 ml 4650 ml 26942 ml # Voids 6 # Bowel Movements 1 1 Exam General: Generally healthy-appearing, no acute distress HEENT: sclerae anicteric, oral mucosa moist Neck: no JVD Chest: clear to auscultation Cardiac: S1S2, tachycardic, no MR murmur appreciated Abdomen: BS normal, non-tender Extremities: No edema Neuro: A&O, cranial nerves symmetric, motor strength 5/5, coordination normal IVs and Medications Medications Reviewed: Medications were reviewed in detail Lab and Diagnostics Result Diagram: 01/30/17 0302 01/30/17 0302 X-Rays, CTs and MRIs CT chest 01/26/17 Impression: 1. No acute pulmonary embolus. 2. Pleural effusions, mild edema, and cardiomegaly suggesting congestive heart failure. Please note, the questionable right basilar radiopacities described on the associated chest film from earlier today likely represent effusion and atelectasis and not airspace disease. Approved by: Callie Hess M.D. on 01/26/17 PROCEDURE: X-RAY CHEST ONE VIEW, PORTABLE ([id number]) IMPRESSION: Cardiomegaly and mild edema. Dictated by: Omar ESPINO Interpreted: Yoly Street MD on 01/28/2017 at 9:34 . 12-lead ECG 01/28/17 atrial flutter 2-1 block rate 155. QRS duration 0.11. Incomplete LBBB Cardiac Echo Impressions Echocardiogram Report 01/28/17 Interpretation Summary The left ventricle is moderate-severely dilated. The ejection fraction is estimated to be 15-20%. There is no obvious LV thrombus. Focal calcified, nonmobile. small structure seen at the junction of middle and distal septum (involves all the layers of septum). Except basal posterolateral wall, and the apex, rest of the LV segments are severely hypokinetic to akinetic. Assessment of diastolic parameters indicates a restrictive filling pattern of the left ventricle consistent with significantly elevated filling pressures. The right ventricle is moderately dilated. Right ventricular systolic function is moderately reduced. There is severe mitral regurgitation. The mitral regurgitant jet is eccentrically directed. There is moderate tricuspid regurgitation. The right ventricular systolic pressure is estimated at 41 mmHg assuming a right atrial pressure of 15 mm Hg. The ascending aorta is mildly enlarged. There is a trivial to small pericardial effusion noted. There are no echocardiographic indications of cardiac tamponade. There is a small right-sided pleural effusion. . Additional Diagnostics FINDINGS: 1. LMCA: The left main coronary artery is short and intact. 2. LAD: Normal. The LAD is a large transapical vessel with two diagonals. 3. LCX: Normal. Codominant. The left circumflex artery is a large vessel with a large posterolateral branch. 4. RCA: Codominant. Normal. The right coronary artery is a moderate-sized vessel with a moderate sized PDA but no posterolateral branch. CONCLUSION: Coronary arteries normal. RECOMMENDATIONS: 1. Admit to hospitalist for further diagnosis and management; including for acute management of clinical pulmonary edema; and a murmur of mitral regurgitation in an IV methamphetamine user. 2. Comment: The coronary angiogram is consistent with the clinical impression of primarily pulmonary edema; and excludes STEMI. Nasim Juarez MD 01/28/17 [id number] . Assessment & Plan Patient is a 46 y.o. M with a medical history of IV methamphetamine use, HTN. Patient presented to ED via EMS from [facility] due to chest pain and shortness of breath. Admitted to hospital for treatment of STEMI s/p cardiac categorization 01/28/17, new onset CHF. Acute and her high risk problems: #. CHF, acute systolic, uncontrolled. Echo with markedly reduced LVEF. Currently NYHA class III. CT chest 01/26/17 cardiomegaly suggesting congestive heart failure, no sign of PE. CXR consistent with CHF. s/p cardiac categorization 01/28/17 Dr. Juarez, showed presence of mitral regurgitation and pulmonary edema, no signs of STEMI. Cardiac cath showed no CAD. - Discussed with cardiology and recommended starting low-dose carvedilol once significant diuresis occurs - Patient currently improving with IV Lasix diuresis - Continue DONNA inhibitor - Titrate up on carvedilol #. Pulmonary edema, acute - s/p cardiac cath, showed sings of pulmonary edema consistent with uncontrolled CHF - Lasix IV 40 mg BID -Transition to oral CHF diuretic and beta lottie medications #. Suspicion of SBE, acute. Mitral regurgitation of unknown chronicity in the setting of IVDU, R/o SBE. No thrombus by TTE. Rashid criteria: New vs chronic mitral regurgitation, IVDU. Pharyngeal MRSA swab is negative. Afebrile with negative ESR. Cultures now show gram-positive coccus in 1 bottle from 1/2 sets , positivity greater than 24 hours. - Repeat blood cultures x 2 ordered - Initiate gram-positive coverage after blood cultures obtained - Discussed need for TTE with homicide squad commanding officer alliances consultant Resolving, stable and/or Chronic conditions #. 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 Likely require several more days to determine need for active endocarditis treatment. . Pain Evaluation: Adequate Pain Control GI Prophylaxis: Proton Pump Inhibitor VTE Prophylaxis: Sub-Q Heparin (Unfractionated) Resuscitation Status: CPR: Attempt Resuscitation Time spent 35 minutes George Donald MD Jan 30, 2017 11:38
[2017-01-30 14:03] LABS: BASOPHILS % (AUTO) 0.6 % (0-3); EOSINOPHILS % (AUTO) 5.2 % (0-5); MONOCYTES % (AUTO) 9.1 % (4-12); Mean Corpuscular Hemoglobin 28.1 pg (27.0-35.0); Mean Corpuscular Volume 86.2 fL (81-100); NEUTROPHILS % (AUTO) 55.8 % (40-74); Platelet Count 326 bil/L (150-400)
[2017-01-30 14:33] LABS: ERYTHROCYTE SEDIMENTATION RATE 2 mm/hr (0-15)
--- NOTE | 2017-01-30 17:35 | NUR ---
TACHYCARDIA Patient has remained tachycardic w/ HR in 110s at rest and 140s w/ activity, at beginning of shift. As day has progressed, patient's HR has increased to 120s-130s at rest and 160s w/ any activity. Spoke w/ Dr. Donald, who believes patient's fluid status is not able to keep up w/ diuresis, so will administer 1L bolus over a few hours to see if this improves his HR. Patient is completely asymptomatic w/ tachycardia, but will continue to monitor vitals and tele.
[2017-01-30] MEDS ORDERED: 0.9% Sodium Chloride 1,000 ML IV ONE (17:40)
[2017-01-30] MEDS ORDERED: Vancomycin Dose per Pharmacist XX SCH (18:20)
[2017-01-30] MEDS ORDERED: Vancomycin Inj 1,750 MG in 0.9% Sodium Chloride 500 ML IV ONE (19:25)
--- NOTE | 2017-01-30 20:33 | PCM.CONPHA ---
Subjective Requesting Provider: George Donald MD Chest pain Reason for Pharmacy Consult: Vancomycin Dosing Assessment/Plan Assessment/Plan Vancomycin for suspected subacute bacterial endocarditis, with a goal trough of 15-20. Vancomycin is empiric therapy for a patient with a [place] valve and history of IV drug abuse. Ht=73 inches Wt=89K Serum Cr=0.91 Creatinine rybofymqc=041qc/min (GlobalRPh) WBC=8.8 Afebrile Vancomycin 1.75Gm IV load, then 1.25Gm IV q 8 hours should produce a trough of approximately 17, within the goal range. A trough has been ordered for 01/31/172029, prior to the 4th total dose. The pharmacist on duty will evaluate the level and adjust dosing accordingly. Maggy Reddy [facility] Jan 30, 2017 20:33
[2017-01-30] MEDS ORDERED: 0.9% Sodium Chloride 100 ML ONE (20:56)
[2017-01-31] VITALS (9 sets, daily range): BP systolic 99–129; BP diastolic 63–83; PULSE 102–118; RESP 16–24; O2SAT 94–99
[2017-01-31 04:46] LABS: BASOPHILS % (AUTO) 0.3 % (0-3); EOSINOPHILS % (AUTO) 5.9 % (0-5); MONOCYTES % (AUTO) 10.1 % (4-12); Mean Corpuscular Hemoglobin 28.6 pg (27.0-35.0); NEUTROPHILS % (AUTO) 44.5 % (40-74); Platelet Count 326 bil/L (150-400)
[2017-01-31 05:09] LABS: Magnesium 2.2 mg/dL (1.6-2.6)
[2017-01-31] MEDS ORDERED: Vancomycin Inj 1,250 MG in 0.9% Sodium Chloride 250 ML IV SCH (05:30)
[2017-01-31] MEDS ORDERED: 0.9% Sodium Chloride 250 ML ONE (07:23)
--- NOTE | 2017-01-31 08:15 | NUR ---
HR/Rest Pt's HR has remained ST 100s-110s after pt received the 1L bolus of NS. Pt was able to rest through most of the shift.
--- NOTE | 2017-01-31 08:15 | NUR ---
Dizziness Pt reported to [facility] dizziness and lightheadedness. Pt started Vancomycin 166.67 ml/hr. Pt stated he has never had Vanco, thinks he may be having reaction. Administered O2 NC 2L, positioned pt upright to 45 degrees. BP 129\93, P 114, T 36.4, SPO2 98% 2L NC. Notified
--- NOTE | 2017-01-31 12:36 | PCM.PNMED ---
Subjective Date of Service Jan 31, 2017 Subjective 46-year-old man with nonischemic cardiomyopathy due to sympathomimetic abuse presents with dyspnea. Adverse symptoms after vancomycin this morning including shortness of breath and abdominal discomfort, resolved after discontinuation of the infusion. He continues to experience labored breathing and persistent tachycardia. Experiences dyspnea on exertion ambulating to bathroom. Has not walked in the hallway. Exam Vital Signs Vital Sign - Last Date Time Temp Pulse Resp B/P Pulse Ox O2 Delivery O2 Flow Rate FiO2 01/31/17 11:16 36.4 103 18 106/68 97 Room Air 01/28/17 04:08 3.00 Intake and Output 01/30/17 01/30/17 01/31/17 Cumulative From/Thru 15:00 23:00 07:00 01/28/17 01:59 - 01/31/17 05:23 Intake Total 1350 ml 400 ml 5180 ml Output Total 2350 ml 1700 ml 73506 ml Balance -1000 ml -1300 ml -01049 ml Intake Oral 1350 ml 400 ml 5160 ml IV Total 20 ml Output Urine Total 2350 ml 1700 ml 65255 ml # Voids 6 # Bowel Movements 1 0 2 Exam General: Generally healthy-appearing, no acute distress HEENT: sclerae anicteric, oral mucosa moist Neck: no JVD Chest: clear to auscultation Cardiac: S1S2, tachycardic, II/ MR murmur at apex Abdomen: BS normal, non-tender Extremities: No edema Neuro: A&O, cranial nerves symmetric, motor strength 5/5, coordination normal IVs and Medications Medications Reviewed: Medications were reviewed in detail Lab and Diagnostics Repeat ESR 2 Procalcitonin 0.14 HCV antibody positive, HCV viral count is still pending HIV negative Rheumatoid factor is positive Result Diagram: 01/31/17 0356 01/31/17 0356 Microbiology Blood cultures 01/28 one bottle anaerobic positive with staph morphology after 52 hours culture No other positive blood cultures X-Rays, CTs and MRIs CT chest 01/26/17 Impression: 1. No acute pulmonary embolus. 2. Pleural effusions, mild edema, and cardiomegaly suggesting congestive heart failure. Please note, the questionable right basilar radiopacities described on the associated chest film from earlier today likely represent effusion and atelectasis and not airspace disease. Approved by: Callie Hess M.D. on 01/26/17 PROCEDURE: X-RAY CHEST ONE VIEW, PORTABLE ([id number]) IMPRESSION: Cardiomegaly and mild edema. Dictated by: Omar Turk [facility] Interpreted: Yoly Street MD on 01/28/2017 at 9:34 . 12-lead ECG 01/28/17 atrial flutter 2-1 block rate 155. QRS duration 0.11. Incomplete LBBB Cardiac Echo Impressions Echocardiogram Report 01/28/17 Interpretation Summary The left ventricle is moderate-severely dilated. The ejection fraction is estimated to be 15-20%. There is no obvious LV thrombus. Focal calcified, nonmobile. small structure seen at the junction of middle and distal septum (involves all the layers of septum). Except basal posterolateral wall, and the apex, rest of the LV segments are severely hypokinetic to akinetic. Assessment of diastolic parameters indicates a restrictive filling pattern of the left ventricle consistent with significantly elevated filling pressures. The right ventricle is moderately dilated. Right ventricular systolic function is moderately reduced. There is severe mitral regurgitation. The mitral regurgitant jet is eccentrically directed. There is moderate tricuspid regurgitation. The right ventricular systolic pressure is estimated at 41 mmHg assuming a right atrial pressure of 15 mm Hg. The ascending aorta is mildly enlarged. There is a trivial to small pericardial effusion noted. There are no echocardiographic indications of cardiac tamponade. There is a small right-sided pleural effusion. . Additional Diagnostics FINDINGS: 1. LMCA: The left main coronary artery is short and intact. 2. LAD: Normal. The LAD is a large transapical vessel with two diagonals. 3. LCX: Normal. Codominant. The left circumflex artery is a large vessel with a large posterolateral branch. 4. RCA: Codominant. Normal. The right coronary artery is a moderate-sized vessel with a moderate sized PDA but no posterolateral branch. CONCLUSION: Coronary arteries normal. RECOMMENDATIONS: 1. Admit to hospitalist for further diagnosis and management; including for acute management of clinical pulmonary edema; and a murmur of mitral regurgitation in an IV methamphetamine user. 2. Comment: The coronary angiogram is consistent with the clinical impression of primarily pulmonary edema; and excludes STEMI. Nasim Juarez MD 01/28/17 0735 . Assessment & Plan Patient is a 46 y.o. M with a medical history of IV methamphetamine use, HTN. Patient presented to ED via EMS from [facility] due to chest pain and shortness of breath. Admitted to hospital for treatment of STEMI s/p cardiac categorization 01/28/17, new onset CHF. Acute and her high risk problems: #. CHF, acute systolic, uncontrolled. Echo with markedly reduced LVEF. Currently NYHA class III. CT chest 01/26/17 cardiomegaly suggesting congestive heart failure, no sign of PE. CXR consistent with CHF. s/p cardiac categorization 01/28/17 Dr. Juarez, showed presence of mitral regurgitation and pulmonary edema, no signs of STEMI. Cardiac cath showed no CAD. Symptoms improved after IV Lasix resulted in 6 kg diuresis. He now has persistent sinus tachycardia, slightly improved after 1 L saline infusion on 01/30 - Initiated low-dose carvedilol on 01/30, blood pressure tolerating 6.25 mg twice a day so far - Patient currently improving with IV Lasix diuresis - Continue DONNA inhibitor lisinopril 5 mg -Cardiology consult to advise on further titration of CHF medications #. Pulmonary edema, acute - s/p cardiac cath, showed sings of pulmonary edema consistent with uncontrolled CHF - Holding Lasix at present due to persistent tachycardia - Transition to oral CHF diuretic and beta lottie medications #. Suspicion of SBE, acute. Mitral regurgitation of unknown chronicity in the setting of IVDU, R/o SBE. No thrombus by TTE. Rashid criteria: New vs chronic mitral regurgitation, IVDU. Pharyngeal MRSA swab is negative. Afebrile with negative ESR. Cultures now show gram-positive coccus in 1 bottle from 1/2 sets , isolated culture with positivity greater than 24 hours suggests contaminant. - Repeat blood cultures x 2 ordered - Discontinue antibiotics at present and observe - Discussed need for TTE with senior compliance officer supervisor home energy consultant Resolving, stable and/or Chronic conditions #. 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 Likely require 2 more days to optimize acute systolic CHF therapies and rule out SBE. . GI Prophylaxis: Proton Pump Inhibitor VTE Prophylaxis: Sub-Q Heparin (Unfractionated) Resuscitation Status: CPR: Attempt Resuscitation Time spent 35 minutes in patient assessment in care coordination including review of data with supervisor home energy consultant George Donald MD Jan 31, 2017 12:22
--- NOTE | 2017-01-31 15:28 | NUR ---
Social Work Note: Continued Discharge Planning Data& Assessment: Per MD in morning rounds, pt is not medically ready for discharge at this time. Pt is being seen by specialist for possible endocarditis. SW met with pt and pt sister at bedside to check in and assess for any unmet needs. Pt is ambulating independently in his room. SW provided pt with DPOA/Advance Directive paperwork to review and complete when possible. Pt and pt sister deny any other needs at this time. SW to continue to follow if any needs arise. Plan: Anticipated discharge home via POV when medically ready. Pt and pt sister deny any other needs at this time. SW to continue to follow if any needs arise. NATALEE Villalobos
[2017-01-31] MEDS ORDERED: Vancomycin Serum Trough XX ONE (20:30)
[2017-02-01 03:10] VITALS: BP 110/59; PULSE 100; RESP 20; O2SAT 96
[2017-02-01 07:51] VITALS: BP 121/82; PULSE 99; RESP 19; O2SAT 96
[2017-02-01] MEDS ORDERED: LISI-571 PO (08:58)
[2017-02-01] MEDS ORDERED: ASPI81TA3 PO (08:58)
[2017-02-01] MEDS ORDERED: CARV6.252 PO (08:58)
[2017-02-01] MEDS ORDERED: DIGO250T72 PO (08:58)
[2017-02-01 09:00] VITALS: PULSE 100
[2017-02-01] MEDS ORDERED: FUR20 PO (09:02)
--- NOTE | 2017-02-01 09:03 | PCM.DIMED ---
Discharge Instructions Date of Service Feb 01, 2017 Dates of Hospitalization Jan 28, 2017 at 02:17 Discharge Diagnosis Discharge Diagnosis Acute systolic congestive heart failure NYHA class III; methamphetamine use; Medication Instructions Prescriptions for carvedilol, lisinopril, digoxin, Lasix and aspirin have been sent to [facility] in [place]. Diet Low fat, Low Sodium, Heart Healthy Activity Limited until seen by PCP Call your provider Shortness of breath Patient Instructions You should follow-up in the cardiology CHF clinic within 1 week. Your heart failure medications will require adjustment. You see your primary care provider within 2 weeks or as soon as possible. Follow-up Provider: [facility] Follow-up with PCP in: 1 week Provider: Neymar Gomez MD Follow-up in: 2 weeks George Donald MD Feb 01, 2017 09:01
--- NOTE | 2017-02-01 11:24 | NUR ---
Social Work Note: Discharge Data& Assessment: Per pt is medically ready to discharge home via POV. SW met with pt and pt girlfriend at bedside to confirm discharge plan and assess for any unmet needs. Steve Santiago is a 46 year old male admitted on 01/28/2017 for STEMI. Per pt is medically improved and ready to discharge home via POV. Pt is ambulating at baseline. Pt girlfriend transporting pt home. Pt and pt girlfriend deny any other needs. No other discharge needs identified. Plan: Per pt is medically ready to discharge home via POV. Pt girlfriend transporting pt home. Pt and pt girlfriend deny any other needs. No other discharge needs identified. NATALEE Villalobos
--- NOTE | 2017-02-01 11:33 | NUR ---
Discharge Pt discharged home today at 11:40. Pt off floor via ambulation with all belongings in the company of the nurse and to private vehicle. Prescriptions were faxed to [facility], education materials on meds, CHF, Cardiomyopathy, and H/H diet were given. Education on the importance of smoking cessation and abstaining from methamphetamine use were stressed given pt's heart condition. Pt voiced understanding and intention to stop both. Follow up appointment with [facility] PCP [facility], cardiology will call pt for appointment. Medication importance and timing were gone over extensively with pt and he was able to accurately describe schedule to his 30 min post-teaching.
--- NOTE | 2017-02-01 16:46 | PCM.DC.MED ---
Discharge Summary Date of Service Feb 01, 2017 Dates of Hospitalization Date of Hospital Admission Jan 28, 2017 at 02:17 Date of Discharge: Feb 01, 2017 Providers: Admitting Physician: Nasim Juarez MD Primary Care Physician: Neymar Gomez MD Attending Physician: Nasim Juarez MD Diagnosis at Time of Discharge Diagnosis at Time of Discharge Acute systolic congestive heart failure NYHA class III; methamphetamine use; Consultations Cardiology, Dr. Meagan Juarez Procedures XRay, CTs & MRIs CT chest 01/26/17 Impression: 1. No acute pulmonary embolus. 2. Pleural effusions, mild edema, and cardiomegaly suggesting congestive heart failure. Please note, the questionable right basilar radiopacities described on the associated chest film from earlier today likely represent effusion and atelectasis and not airspace disease. Approved by: Callie Hess M.D. on 01/26/17 PROCEDURE: X-RAY CHEST ONE VIEW, PORTABLE ([id number]) IMPRESSION: Cardiomegaly and mild edema. Dictated by: Omar Turk [facility] Interpreted: Yoly Street MD on 01/28/2017 at 9:34 . ECG 12 Lead 01/28/17 atrial flutter 2-1 block rate 155. QRS duration 0.11. Incomplete LBBB Cardiac Echo Impression Echocardiogram Report 01/28/17 Interpretation Summary The left ventricle is moderate-severely dilated. The ejection fraction is estimated to be 15-20%. There is no obvious LV thrombus. Focal calcified, nonmobile. small structure seen at the junction of middle and distal septum (involves all the layers of septum). Except basal posterolateral wall, and the apex, rest of the LV segments are severely hypokinetic to akinetic. Assessment of diastolic parameters indicates a restrictive filling pattern of the left ventricle consistent with significantly elevated filling pressures. The right ventricle is moderately dilated. Right ventricular systolic function is moderately reduced. There is severe mitral regurgitation. The mitral regurgitant jet is eccentrically directed. There is moderate tricuspid regurgitation. The right ventricular systolic pressure is estimated at 41 mmHg assuming a right atrial pressure of 15 mm Hg. The ascending aorta is mildly enlarged. There is a trivial to small pericardial effusion noted. There are no echocardiographic indications of cardiac tamponade. There is a small right-sided pleural effusion. Shaun Raman MD . Other Diagnostics FINDINGS: 1. LMCA: The left main coronary artery is short and intact. 2. LAD: Normal. The LAD is a large transapical vessel with two diagonals. 3. LCX: Normal. Codominant. The left circumflex artery is a large vessel with a large posterolateral branch. 4. RCA: Codominant. Normal. The right coronary artery is a moderate-sized vessel with a moderate sized PDA but no posterolateral branch. CONCLUSION: Coronary arteries normal. RECOMMENDATIONS: 1. Admit to hospitalist for further diagnosis and management; including for acute management of clinical pulmonary edema; and a murmur of mitral regurgitation in an IV methamphetamine user. 2. Comment: The coronary angiogram is consistent with the clinical impression of primarily pulmonary edema; and excludes STEMI. Nasim Juarez MD 01/28/17 9585 . Brief History History of Present Illness (per admission note): Patient is a 46 y.o. M with a medical history of IV methamphetamine use, HTN. Patient presented to ED via EMS from [facility] due to chest pain and shortness of breath. Per EMS report patient described pain as chest tightness, 5 /10, received nitroglycerin and aspirin en route, with good relief of chest pain down to 1/10. Patient stated his last meth use was two days ago. Patient was seen at [facility] two days ago for meth intoxication, chest pain, and diagnosed with early onset CHF. He was discharge with a prescription for Lasix and potassium, which he never filled. Upon arrival to ED chest pain had mostly resolved, EKG showed ST elv in leads V2-6, patient case discussed with Dr. Juarez who agreed to take patient to laborer heading. Patient reports that symptoms today were similar to those at [facility] but worse, noting shortness of breath, chest pain described a crushing/tightness, sweating, dizziness, nausea. Patient denies syncope, nausea, vomiting, chills, diarrhea, change in vision, cough. . Hospital Course #. CHF, acute systolic, uncontrolled. Echo with markedly reduced LVEF. Currently NYHA class III. CT chest 01/26/17 cardiomegaly suggesting congestive heart failure, no sign of PE. CXR consistent with CHF. s/p cardiac categorization 01/28/17 Dr. Juarez, showed presence of mitral regurgitation and pulmonary edema, no signs of STEMI. Cardiac cath showed no CAD. Symptoms improved after IV Lasix resulted in 6 kg diuresis. He now has persistent sinus tachycardia, slightly improved after 1 L saline infusion on 01/30 - Initiated carvedilol and low-dose lisinopril - Daily oral Lasix - Daily digoxin - Aspirin - Recommend CHF clinic follow-up in 1 week #. Pulmonary edema, acute - s/p cardiac cath, showed sings of pulmonary edema consistent with uncontrolled CHF - Stable with good oxygenation at time of discharge #. Suspicion of SBE, acute. Mitral regurgitation of unknown chronicity in the setting of IVDU, R/o SBE. No thrombus by TTE. Rashid criteria: New vs chronic mitral regurgitation, IVDU. Pharyngeal MRSA swab is negative. Afebrile with negative ESR. Cultures now show staph epi in 1 bottle from 1/2 sets, isolated culture with positivity greater than 24 hours suggests contaminant. No bacteremia on follow-up blood cultures - SBE is ruled out. #. 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 hepatitis C positive - viral load sent and pending at time of discharge - HIV screen ordered which returned as negative Back pain - Percocet 5-325 mg PO 1 tab Q4 hrs . Exam Vital Signs (Last) Date Time Temp Pulse Resp B/P Pulse Ox O2 Delivery O2 Flow Rate FiO2 02/01/17 09:00 100 02/01/17 08:32 Supplement Oxygen 02/01/17 07:51 36.5 19 121/82 96 01/28/17 04:08 3.00 Exam General: Generally healthy-appearing, no acute distress HEENT: sclerae anicteric, oral mucosa moist Neck: no JVD Chest: clear to auscultation Cardiac: S1S2, tachycardic, II/ MR murmur at apex, no binta Abdomen: BS normal, non-tender Extremities: No edema Neuro: A&O, cranial nerves symmetric, motor strength 5/5, coordination normal Test 01/28/17 02:03 01/28/17 02:04 01/28/17 02:20 01/28/17 08:20 Hold Purple Top Tube Received (Received) Prothrombin Time 12.7sec (8.1-12.5) Prothromb Time International Ratio 1.18ratio Activated Partial Thromboplast Time 28.9sec (22.8-33.0) Hold Blue Top Tube Received (Received) Hemoglobin A1c 6.2% (4.8-5.6) Lactic Acid Level 1.4mmol/L (0.4-2.0) Thyroid Stimulating Hormone (TSH) 5.790uIU/mL (0.450-4.500) Hold Holliday Top Tube Received (Received) Hold Watts Top Tube Received (Received) Free Thyroxine 1.23ng/dL (0.82-1.77) Urine Color Dark yellow (YELLOW) Urine Appearance Clear (CLEAR,HAZY) Urine pH 5.5 (5.0-8.0) Urine Specific [place] 1.025 (1.003-1.035) Urine Protein 30mg/dL (NEG,TRACE) Urine Glucose (UA) Negativemg/dL (NEGATIVE) Urine Ketones Negativemg/dL (NEGATIVE) Urine Occult Blood Negative (NEGATIVE) Urine Nitrite Negative (NEGATIVE) Urine Bilirubin Negative (NEGATIVE) Urine Urobilinogen Normalmg/dL (NORMAL) Urine Leukocyte Esterase Negative (NEGATIVE) Urine RBC 0-2/hpf (0-2) Urine WBC 0-5/hpf (0-5) Urine Epithelial Cells Few/hpf (NONE-MOD) Urine Crystals None seen (NONE SEEN) Urine Bacteria None/hpf (NONE-FEW) Urine Hyaline Casts None/lpf (NONE) Urine Granular Casts None seen (NONE SEEN) Urine Waxy Casts None seen (NONE SEEN) Urine Red Blood Cell Casts None seen (NONE SEEN) Urine White Blood Cell Casts None seen (NONE SEEN) Urine Mucus Present (None Seen) Urine Trichomonas None seen (NONE SEEN) Urine Yeast None (NONE SEEN) Urine Culture Reflexed Not indicated Hold Urine Received (Received) Urine Opiates Screen Negative Urine Methadone Screen Negative Urine Barbiturates Screen Negative Urine Amphetamines Screen Positive Urine Benzodiazepines Screen Negative Urine Cocaine Metabolite Screen Negative Urine Cannabinoids Screen Negative Rheumatoid Factor 18.0IU/mL (0.0-13.9) Hepatitis A IgM Antibody Negative (Negative) Hepatitis B Surface Antigen Negative (Negative) Hepatitis B Core IgM Antibody Negative (Negative) Hepatitis C Antibody >11.0s/co ratio Hepatitis C Antibody Comment Comment (.) HIV (1&2) Ag and Ab, 4th Generation Non reactive (Non Reactive) Test 01/28/17 14:15 01/29/17 03:58 01/29/17 08:20 01/30/17 13:49 Total Creatine Kinase 76U/L (21-232) Creatine Kinase MB 2.9ng/mL (0.0-10.4) Creatine Kinase MB % % (0.0-5.0) Troponin T < 0.010ug/L (0.0-0.011) Triglycerides Level 42mg/dL (0-149) Cholesterol Level 89mg/dL (100-199) LDL Cholesterol, Calculated 46.600mg/dL (0-99) VLDL Cholesterol 8.400mg/dL HDL Cholesterol 34mg/dL (>39) Cholesterol/HDL Ratio 2.62 (0.0-4.4) Erythrocyte Sedimentation Rate 2mm/hr (0-15) Procalcitonin 0.14ng/mL (0.00-0.08) Test 01/30/17 20:44 01/31/17 03:56 02/01/17 02:55 Hold Red Top Tube Received (Received) White Blood Count 9.7th/mm3 (3.8-10.1) Red Blood Count 5.35mil/mm3 (4.40-5.80) Hemoglobin 15.3g/dL (13.8-17.2) Hematocrit 46.0% (41.0-50.0) Mean Corpuscular Volume 86.0fL (81-100) Mean Corpuscular Hemoglobin 28.6pg (27.0-35.0) Mean Corpuscular Hemoglobin Concent 33.3% (32.0-37.0) Red Cell Distribution Width 13.1% (12.3-15.4) Platelet Count 326bil/L (150-400) Neutrophils (%) (Auto) 44.5% (40-74) Lymphocytes (%) (Auto) 38.9% (14-46) Monocytes (%) (Auto) 10.1% (4-12) Eosinophils (%) (Auto) 5.9% (0-5) Basophils (%) (Auto) 0.3% (0-3) Magnesium Level 2.2mg/dL (1.6-2.6) Total Bilirubin 0.5mg/dL (0.0-1.2) Aspartate Amino Transf (AST/SGOT) 70U/L (0-50) Alanine Aminotransferase (ALT/SGPT) 60U/L (0-44) Alkaline Phosphatase 100U/L (25-150) Total Protein 7.1g/dL (6.4-8.4) Albumin 3.0g/dL (3.4-5.0) Sodium Level 136mEq/L (134-144) Potassium Level 4.6mEq/L (3.5-5.2) Chloride Level 103mEq/L (97-108) Carbon Dioxide Level 20mmol/L (18-29) Blood Urea Nitrogen 18mg/dL (6-24) Creatinine 0.87mg/dL (0.76-1.27) Estimat Glomerular Filtration Rate 101mL/min (>59) Glucose Level 156mg/dL (60-99) Calcium Level 8.8mg/dL (8.5-10.1) Microbiology Results Blood cultures 01/28 one bottle anaerobic positive with staph morphology after 52 hours culture No other positive blood cultures Discharge Medications Discharge Medications Aspirin Chew (Aspirin Chew) 81 Mg Chew 81 MG PO DAILY Prescribed by: AMANDA PAZ MD Carvedilol (Carvedilol) 6.25 Mg Tablet 12.5 MG PO BIDWM Prescribed by: AMANDA PAZ MD Digoxin (Digoxin) 250 Mcg Tablet 0.25 MG PO DAILY@12 Prescribed by: AMANDA PAZ MD Furosemide (Furosemide) 20 Mg Tab 20 MG PO DAILY Prescribed by: AMANDA PAZ MD Lisinopril (Lisinopril) 5 Mg Tablet 5 MG PO DAILY Prescribed by: AMANDA PAZ MD Additional med instructions Prescriptions for carvedilol, lisinopril, digoxin, Lasix and aspirin have been sent to [facility] pharmacy in [place]. Followup Plan Discharge Diet: Low fat, Low Sodium, Heart Healthy Discharge Activity: Limited until seen by PCP Patient Instructions You should follow-up in the cardiology CHF clinic within 1 week. Your heart failure medications will require adjustment. You see your primary care provider within 2 weeks or as soon as possible. Follow[facility] Follow-up with PCP in: 1 week Provider: Neymar Gomez MD Follow-up in: 2 weeks Time spent 30 minutes copies to: Neymar Gomez MD, Jeffrey W MD Feb 01, 2017 09:04
--- NOTE | 2017-02-02 00:36 | PROG NOTE ---
[address] [address] PROGRESS NOTE PATIENT: BRANT AVALOS : 1970 MR#: [id number] ADMIT: 01/28/2017 JOB ID: [id number] DATE: 01/31/2017 SUBJECTIVE: The patient says his breathing is stable. He says he is committed to sobriety and he does not plan to use drugs. He plans to follow instructions with his physician and achieve a better life for himself and better cardiovascular health. PHYSICAL EXAMINATION: Vital signs: Temperature 36.2, up to 36.6. Blood pressure 99/63, up to 129/73. Pulse 102, up to 118. He is satting 94% to 99% on room air. This is a thin chronically ill-appearing man, lying in bed. Eyes: No scleral icterus. Neck is supple. No lymphadenopathy. No carotid bruits. Heart: Normal S1, S2. There is a 1/6 holosystolic murmur at the apex. Abdomen is soft, positive bowel sounds. No hepatosplenomegaly. Extremities: Warm, well perfused. No clubbing, cyanosis, or edema. Skin: No rashes or lesions. His skin exam demonstrates multiple tattoos and healed scars on his ankles, but no active lesions that I can appreciate. LABORATORIES: Were reviewed. His hematocrit is stable. His creatinine is stable at 0.9. He has mild transaminitis. AST 70, ALT 60. Unfortunately, transaminitis appears to be rising. BUN 3. His TSH is mildly elevated at 5.79. His lipids showed total cholesterol 89, triglycerides 42, HDL 34, LDL 47. Drug of abuse screen was positive for meth. Rheumatoid factor was elevated. HIV was nonreactive. Hep C antibody was positive and hep C quantification is pending. Echocardiogram: I have personally reviewed, and I appreciate my partner, Dr. Raman's read. Dr. Raman noted ejection fraction of 15% to 20% with no obvious LV thrombus. Dr. Raman noted focal calcified structure at the juncture of the middle and distal septum. My impression, having reviewed the echocardiogram, is this is the false cord insertion onto the septum. It does appear thicker than normal and created some reverberation artifact. The patient has stage III diastolic dysfunction, moderate RV dilation, moderately reduced RV function, severe eccentric mitral regurgitation in the setting of tethered posterior leaflet and trivial pericardial effusion. Estimated pulmonary artery systolic pressure is 41 mmHg. I reviewed patient's angiogram. Basically, the coronary arteries are normal. CURRENT MEDICATIONS: Include: 1. Aspirin 81 mg daily. 2. Carvedilol 6.25 mg twice a day. 3. Lisinopril 5 mg daily. 4. Lasix 20 mg daily. 5. Digoxin 250 mcg daily. 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 He says he is committed to sobriety and he does not want to use drugs anymore. We talked about diet, exercise and compliance with medical therapy. We will make him an appointment to be seen in [facility] in about a week. I asked him to start his sobriety journey and enroll in Narcotics Anonymous, and he voices understanding. His , Renate, is at the bedside and she also agrees. We talked about low-sodium diet and compliance with medication. I look forward to seeing this patient in clinic. Thank you very much for the opportunity to evaluate him.
== END 2017-02-01 11:45 | disposition home or self-care (01) | DRG 287 ==
LOC: SED 01:54 → CCU 02:17 → PCC 07:55
PROVIDERS: ADMIT Internal Medicine Cardiovascular Disease; ATTEND Internal Medicine Cardiovascular Disease
PROC: 4A023N7 Measurement of Cardiac Sampling and Pressure, Left Heart, Percutaneous Approach (ICD-10-PCS; principal; 2017-01-28)
PROC: B2111ZZ Fluoroscopy of Multiple Coronary Arteries using Low Osmolar Contrast (ICD-10-PCS; 2017-01-28)
DX: I50.21 Acute systolic (congestive) heart failure (principal); J81.0 Acute pulmonary edema; I42.9 Cardiomyopathy, unspecified; I27.2 Other secondary pulmonary hypertension; I34.0 Nonrheumatic mitral (valve) insufficiency; F15.90 Other stimulant use, unspecified, uncomplicated; G89.29 Other chronic pain; F17.200 Nicotine dependence, unspecified, uncomplicated; B19.20 Unspecified viral hepatitis C without hepatic coma; Z88.0 Allergy status to penicillin; Z79.82 Long term (current) use of aspirin